=== PATIENT | female | born 1970 | race Two or more races ===

== ENCOUNTER 2021-10-19 09:06 | Emergency (ER) | payer SELFPAY ==
[~2021-10-19] VITALS: Ht 154.9 cm; Wt 54.0 kg
[2021-10-19] MEDS ORDERED: IPRATROPIUM BROM 0.5 MG/2.5ML INH SOL NEB ONE (12:45)
[2021-10-19] MEDS ORDERED: ALBUTEROL SULF 2.5 MG/0.5ML(0.5%) NEB SOLN NEB ONE (12:45)
[2021-10-19 15:17] VITALS: BP 128/74
== END 2021-10-19 15:17 | disposition home or self-care (01) ==
LOC: ER 09:06
DX: J45.901 Unspecified asthma with (acute) exacerbation (principal)
CPT/HCPCS: 36415; 71046; 87426; 94640; 99284; J7644